=== PATIENT | female | born 1970 | race Hispanic/Latino ===

== ENCOUNTER 2017-07-31 23:31 | Inpatient (IN) | payer MEDICAID ==
[~2017-07-31] VITALS: Ht 167.6 cm; Wt 54.6 kg
[~2017-07-31 23:31] MED LIST: ESOM40CA PO; PREG100C PO
[2017-08-01] MEDS ORDERED: SODIUM CHLORIDE 0.9% 1000ML 1,000 ML IV ONE (00:50)
[2017-08-01 00:53] LABS: BASOPHILS % (AUTO) 1.7 % (0.0-5.0); HEMATOCRIT 34.1 % (36-48); MEAN CORPUSCULAR HEMOGLOBIN 29.3 pg (27.0-33.0); MEAN CORPUSCULAR HGB CONC 33.4 g/dL (32.0-36.0); MEAN CORPUSCULAR VOLUME 87.8 fL (79-99); MONOCYTES % (AUTO) 7.3 % (3.0-13.0); NEUTROPHILS % (AUTO) 22.5 % (40.0-77.0); NUCLEATED RED BLOOD CELLS 0.4 % (0.0-0.19); PLATELET COUNT (AUTO) 170 K/uL (130-400); RED BLOOD CELL COUNT(AUTO) 3.89 MIL/uL (4.00-5.50); RED CELL DISTRIBUTION WIDTH 16.1 % (11.0-15.5); WHITE BLOOD COUNT (AUTO) 1.2 K/uL (4.8-10.8)
[2017-08-01 01:06] LABS: APPEARANCE,URINE Clear (CLEAR); BILIRUBIN,URINE Negative (NEGATIVE); COLOR,URINE Yellow (YELLOW); GLUCOSE, URINE (UA) Negative (NEGATIVE); KETONES,URINE Trace mg/dL (NEGATIVE); LEUKOCYTE ESTERASE ,URINE Negative (NEGATIVE); NITRATE,URINE Negative (NEGATIVE); OCCULT BLOOD,URINE Negative (NEGATIVE); PROTEIN,URINE Negative (NEGATIVE)
[2017-08-01 01:08] LABS: RAPID GROUP A STREP NEGATIVE (NEGATIVE)
[2017-08-01 01:12] LABS: LYMPHOCYTES % (AUTO) 67.5 % (21.0-51.0)
[2017-08-01] MEDS ORDERED: ZOSYN 3.375GM+NS 50ML 50 ML IV ONE ×2 (01:18→07:57)
[2017-08-01 01:20] LABS: CREATININE 0.8 mg/dL (0.5-1.5); POTASSIUM 3.5 mmol/L (3.5-5.1)
[2017-08-01 01:23] LABS: BACTERIA,URINE Rare /HPF (None Seen); RBC,URINE 0-1 /HPF (0-1); SQUAMOUS EPITHELIAL CELL,UR 0-2 /LPF (0-2); WBC,URINE 0-1 /HPF (0-1)
[2017-08-01 01:24] LABS: BILIRUBIN,TOTAL 0.4 mg/dL (0.2-1.0); TOTAL PROTEIN, SERUM 6.8 g/dL (6.0-8.3)
[2017-08-01] MEDS ORDERED: VANCOMYCIN 1GM+NS 250ML 250 ML IV ONE ×2 (01:54→11:44)
[2017-08-01 05:54] LABS: BASOPHILS % (AUTO) 1.2 % (0.0-5.0); EOSINOPHILS % (AUTO) 0.7 % (0.0-8.0); HEMATOCRIT 31.3 % (36-48); LYMPHOCYTES % (AUTO) 75.8 % (21.0-51.0); MEAN CORPUSCULAR HEMOGLOBIN 28.8 pg (27.0-33.0); MEAN CORPUSCULAR VOLUME 87.4 fL (79-99); MONOCYTES % (AUTO) 9.3 % (3.0-13.0); NUCLEATED RED BLOOD CELLS 0.2 % (0.0-0.19); PLATELET COUNT (AUTO) 162 K/uL (130-400); RED BLOOD CELL COUNT(AUTO) 3.59 MIL/uL (4.00-5.50); RED CELL DISTRIBUTION WIDTH 16.1 % (11.0-15.5); WHITE BLOOD COUNT (AUTO) 1.5 K/uL (4.8-10.8)
[2017-08-01 06:07] LABS: CREATININE 0.7 mg/dL (0.5-1.5); POTASSIUM 3.3 mmol/L (3.5-5.1)
[2017-08-01] MEDS ORDERED: VANCOMYCIN PROTOCOL PER PHARMACY IV PRN (11:00)
[2017-08-01] MEDS ORDERED: ACETAMINOPHEN 325 MG TAB PO PRN ×2 (11:00)
[2017-08-01] MEDS ORDERED: ACETAMINOPHEN-CODEINE 300/30MG TAB PO PRN (11:00)
[2017-08-01] MEDS ORDERED: GUAIFENESIN-DM 200/20 MG 10 ML PO PRN (11:00)
[2017-08-01] MEDS ORDERED: LACTULOSE 20 GM/30 ML UDCUP PO PRN (11:00)
[2017-08-01] MEDS ORDERED: MAG HYDROX/AL HYDROX/SIMETH ES 30 ML SUSP UDCUP PO PRN (11:00)
[2017-08-01] MEDS ORDERED: POTASSIUM CHLORIDE 20 MEQ ERTAB PO ONE (11:43)
[2017-08-01] MEDS ORDERED: ACETAMINOPHEN-CODEINE 300/30MG TAB ONE (11:43)
[2017-08-01] MEDS ORDERED: PHARMACY COMMUNICATION MISC SCH (12:45)
[2017-08-01] MEDS ORDERED: POTASSIUM CHLORIDE 10% ELIXIR 20 MEQ/15 ML UDCUP PO PRN (13:00)
[2017-08-01] MEDS ORDERED: LIDOCAINE HCL-MPF 1% 2ML VIAL IJ PRN (13:00)
[2017-08-01] MEDS ORDERED: POTASSIUM CHLORIDE 20MEQ/100ML 100 ML IV PRN (13:00)
[2017-08-01] MEDS ORDERED: CLONIDINE HCL 0.1 MG TABLET PO PRN (13:00)
[2017-08-01] MEDS ORDERED: POTASSIUM CHLORIDE 20 MEQ ERTAB PO PRN (13:00)
[2017-08-01] MEDS ORDERED: ZOLPIDEM TARTRATE 5 MG TAB PO PRN (13:15)
[2017-08-01] MEDS ORDERED: COMPOUND IV REFRIGERATED 1 EACH IVSOLN MISC PRN (13:30)
[2017-08-01] MEDS: TBO-FILGRASTIM 300 MCG/0.5 ML ML SQ SCH (15:01)
[2017-08-01] MEDS: ZOSYN 3.375GM+NS 50ML 50 ML IV SCH ×2 (15:16→21:53)
[2017-08-01] MEDS: MORPHINE SULFATE 2 MG/ML 1ML SYG IV PRN ×2 (17:35→21:53)
[2017-08-01 20:00] VITALS: BP 127/78
[2017-08-01] MEDS: OSELTAMIVIR PHOSPHATE 75 MG CAP PO SCH (21:53)
[2017-08-01] MEDS: FAMOTIDINE/PF 20 MG/2 ML VIAL IV SCH (21:53)
[2017-08-01] MEDS: SODIUM CHLORIDE 0.9% 1000ML 1,000 ML IV SCH (21:54)
[2017-08-01] MEDS: VANCOMYCIN 1.25 GM in N.S. 250 ML IV SCH (21:54)
[2017-08-01] MEDS: ONDANSETRON HCL 4 MG/2 ML VIAL IV PRN (23:21)
[2017-08-01] MEDS ORDERED: TRAZ-144 PO (23:36)
[2017-08-01] MEDS ORDERED: DIPH1TAB24 PO (23:36)
[2017-08-01] MEDS ORDERED: CITA20TA17 PO (23:36)
[2017-08-01] MEDS ORDERED: AMOX1TAB15 PO (23:36)
[2017-08-01] MEDS ORDERED: PROCHLORPER PO (23:36)
[2017-08-01] MEDS ORDERED: HYOS-7 PO (23:36)
[2017-08-02 00:19] VITALS: BP 113/67
[2017-08-02] MEDS: ZOSYN 3.375GM+NS 50ML 50 ML IV SCH ×3 (04:41→22:06)
[2017-08-02] MEDS: MORPHINE SULFATE 2 MG/ML 1ML SYG IV PRN ×4 (04:41→22:00)
[2017-08-02] MEDS ORDERED: LACT1CAP78 PO (04:52)
[2017-08-02 04:54] VITALS: BP 131/73
[2017-08-02] MEDS: SODIUM CHLORIDE 0.9% 1000ML 1,000 ML IV SCH ×2 (06:16→22:05)
[2017-08-02 07:31] LABS: HEMATOCRIT 34.4 % (36-48); MEAN CORPUSCULAR HEMOGLOBIN 29.4 pg (27.0-33.0); MEAN CORPUSCULAR HGB CONC 33.5 g/dL (32.0-36.0); MEAN CORPUSCULAR VOLUME 87.8 fL (79-99); NUCLEATED RED BLOOD CELLS 0.4 % (0.0-0.19); PLATELET COUNT (AUTO) 157 K/uL (130-400); RED BLOOD CELL COUNT(AUTO) 3.92 MIL/uL (4.00-5.50); RED CELL DISTRIBUTION WIDTH 16.4 % (11.0-15.5); WHITE BLOOD COUNT (AUTO) 3.4 K/uL (4.8-10.8)
[2017-08-02 07:33] LABS: CREATININE 0.7 mg/dL (0.5-1.5); POTASSIUM 4.1 mmol/L (3.5-5.1)
[2017-08-02 07:56] LABS: BAND NEUTROPHILS % (MANUAL) 2 % (0-2); BASOPHILS % (MANUAL) 1 % (0-2); EOSINOPHILS % (MANUAL) 1 % (1-6); LYMPHOCYTES % (MANUAL) 47 % (22-44); MONOCYTES % (MANUAL) 17 % (2-9); SEGMENTED NEUTROPHILS % 32 % (40-70)
[2017-08-02 07:57] LABS: MAN.DIFF COMMENT-IMPRESSION MANUAL DIFFERENTIAL; PLATELET MORPHOLOGY COMMENT ADEQUATE
[2017-08-02 08:00] VITALS: BP 102/40
[2017-08-02] MEDS: FAMOTIDINE/PF 20 MG/2 ML VIAL IV SCH ×2 (08:24→22:06)
[2017-08-02] MEDS: OSELTAMIVIR PHOSPHATE 75 MG CAP PO SCH ×2 (08:24→22:06)
[2017-08-02] MEDS: ONDANSETRON HCL 4 MG/2 ML VIAL IV PRN ×2 (08:46→14:37)
[2017-08-02 11:00] VITALS: BP 127/84
[2017-08-02] MEDS: VANCOMYCIN 1.25 GM in N.S. 250 ML IV SCH ×2 (11:39→23:44)
[2017-08-02] MEDS: METRONIDAZOLE 500MG/100ML BAG 100 ML IV SCH ×2 (14:09→22:07)
[2017-08-02] MEDS: TBO-FILGRASTIM 300 MCG/0.5 ML ML SQ SCH (14:09)
[2017-08-02] MEDS: GABAPENTIN 100 MG CAPSULE PO SCH ×2 (14:10→22:06)
[2017-08-02] MEDS: LOPERAMIDE HCL 1 MG/5 ML UNIT DOSE CUP PO PRN (14:19)
[2017-08-02 17:06] VITALS: BP 111/67
[2017-08-02 20:00] VITALS: BP 143/71
[2017-08-02] MEDS: ONDANSETRON HCL 4 MG/2 ML VIAL IVP PRN (22:00)
[2017-08-03] VITALS (8 sets, daily range): BP systolic 115–185; BP diastolic 47–88
[2017-08-03] MEDS: ONDANSETRON HCL 4 MG/2 ML VIAL IVP PRN ×4 (03:51→21:56)
[2017-08-03] MEDS: MORPHINE SULFATE 2 MG/ML 1ML SYG IV PRN ×4 (03:53→21:56)
[2017-08-03] MEDS: ZOSYN 3.375GM+NS 50ML 50 ML IV SCH ×3 (05:04→21:00)
[2017-08-03] MEDS: SODIUM CHLORIDE 0.9% 1000ML 1,000 ML IV SCH (05:05)
[2017-08-03] MEDS: METRONIDAZOLE 500MG/100ML BAG 100 ML IV SCH ×3 (05:32→22:00)
[2017-08-03 06:14] LABS: HEMATOCRIT 32.4 % (36-48); MEAN CORPUSCULAR HEMOGLOBIN 29.1 pg (27.0-33.0); MEAN CORPUSCULAR HGB CONC 33.3 g/dL (32.0-36.0); MEAN CORPUSCULAR VOLUME 87.4 fL (79-99); NUCLEATED RED BLOOD CELLS 0.4 % (0.0-0.19); PLATELET COUNT (AUTO) 135 K/uL (130-400); RED BLOOD CELL COUNT(AUTO) 3.71 MIL/uL (4.00-5.50); RED CELL DISTRIBUTION WIDTH 16.3 % (11.0-15.5); WHITE BLOOD COUNT (AUTO) 4.1 K/uL (4.8-10.8)
[2017-08-03 06:26] LABS: CREATININE 0.9 mg/dL (0.5-1.5); POTASSIUM 3.8 mmol/L (3.5-5.1)
[2017-08-03] MEDS: FAMOTIDINE/PF 20 MG/2 ML VIAL IV SCH ×2 (09:55→22:00)
[2017-08-03] MEDS: OSELTAMIVIR PHOSPHATE 75 MG CAP PO SCH ×2 (09:55→21:27)
[2017-08-03] MEDS: GABAPENTIN 100 MG CAPSULE PO SCH ×3 (09:56→21:26)
[2017-08-03] MEDS: TBO-FILGRASTIM 300 MCG/0.5 ML ML SQ SCH (12:55)
[2017-08-03] MEDS: VANCOMYCIN 1GM+NS 250ML 250 ML IV SCH ×2 (12:55→23:38)
[2017-08-03] MEDS: LOPERAMIDE HCL 1 MG/5 ML UNIT DOSE CUP PO PRN (23:39)
[2017-08-04 03:31] VITALS: BP 119/70
[2017-08-04 03:56] LABS: HEMATOCRIT 33.6 % (36-48); MEAN CORPUSCULAR HEMOGLOBIN 29.4 pg (27.0-33.0); MEAN CORPUSCULAR HGB CONC 33.8 g/dL (32.0-36.0); MEAN CORPUSCULAR VOLUME 87.1 fL (79-99); NUCLEATED RED BLOOD CELLS 0.2 % (0.0-0.19); PLATELET COUNT (AUTO) 142 K/uL (130-400); RED BLOOD CELL COUNT(AUTO) 3.86 MIL/uL (4.00-5.50); RED CELL DISTRIBUTION WIDTH 16.5 % (11.0-15.5)
[2017-08-04] MEDS: ONDANSETRON HCL 4 MG/2 ML VIAL IVP PRN ×2 (03:56→09:09)
[2017-08-04] MEDS: MORPHINE SULFATE 2 MG/ML 1ML SYG IV PRN ×3 (03:56→15:11)
[2017-08-04] MEDS: VANCOMYCIN 1GM+NS 250ML 250 ML IV SCH (05:00)
[2017-08-04] MEDS: ZOSYN 3.375GM+NS 50ML 50 ML IV SCH (06:36)
[2017-08-04] MEDS: METRONIDAZOLE 500MG/100ML BAG 100 ML IV SCH (06:36)
[2017-08-04 08:00] VITALS: BP 111/76
[2017-08-04 08:26] LABS: INR 1.07 (0.85-1.15); PARTIAL THROMBOPLASTIN TIME 26.1 SEC (26.3-35.5); PROTHROMBIN TIME 11.2 SEC (9.6-11.6)
[2017-08-04] MEDS: FAMOTIDINE/PF 20 MG/2 ML VIAL IV SCH (09:09)
[2017-08-04] MEDS ORDERED: LIDOCAINE HCL 2% 20ML ONE (09:46)
[2017-08-04] MEDS ORDERED: DOXY100T2 PO (10:22)
[2017-08-04 11:00] VITALS: BP 125/79
[2017-08-04] MEDS: GABAPENTIN 100 MG CAPSULE PO SCH (13:42)
[2017-08-04] MEDS: OSELTAMIVIR PHOSPHATE 75 MG CAP PO SCH (13:42)
[2017-08-04 16:00] VITALS: BP 141/78
== END 2017-08-04 19:05 | disposition home or self-care (01) | DRG 720 ==
LOC: EDH 23:31 → EDHIP 23:32 → 3BH 08-01 11:35
PROVIDERS: ADMIT Internal Medicine; ATTEND Internal Medicine
DX: A41.9 Sepsis, unspecified organism (principal); D70.9 Neutropenia, unspecified; D70.1 Agranulocytosis secondary to cancer chemotherapy; D69.59 Other secondary thrombocytopenia; C50.919 Malignant neoplasm of unspecified site of unspecified female breast; M79.7 Fibromyalgia; G89.4 Chronic pain syndrome; D64.81 Anemia due to antineoplastic chemotherapy; R50.81 Fever presenting with conditions classified elsewhere; T45.1X5A Adverse effect of antineoplastic and immunosuppressive drugs, initial encounter; M19.90 Unspecified osteoarthritis, unspecified site; Z51.11 Encounter for antineoplastic chemotherapy; Z90.11 Acquired absence of right breast and nipple; Z90.710 Acquired absence of both cervix and uterus; Z79.2 Long term (current) use of antibiotics
CPT/HCPCS: 36415; 71046; 76000; 80048; 80053; 80202; 81001; 83605; 85025; 85027; 85610; 85730; 87040; 87088; 87186; 87205; 87324; 87804; 87880; J2405; J2543; J3370; J3490; J7030

== ENCOUNTER 2017-08-08 19:43 | Observation (INO) | payer MEDICAID ==
[~2017-08-08] VITALS: Ht 154.9 cm; Wt 94.2 kg
[~2017-08-08 19:43] MED LIST changes: +CITA20TA17 PO; +DIPH1TAB24 PO; +DOXY100T2 PO; +HYOS-7 PO; +LACT1CAP78 PO; +PROCHLORPER PO; +TRAZ-144 PO
[2017-08-08] MEDS ORDERED: ACETAMINOPHEN 325 MG TAB ONE (20:04)
[2017-08-08 20:05] LABS: APPEARANCE,URINE Clear (CLEAR); BILIRUBIN,URINE Negative (NEGATIVE); COLOR,URINE Yellow (YELLOW); GLUCOSE, URINE (UA) Negative (NEGATIVE); KETONES,URINE Negative (NEGATIVE); LEUKOCYTE ESTERASE ,URINE Moderate (NEGATIVE); NITRATE,URINE Negative (NEGATIVE); OCCULT BLOOD,URINE Negative (NEGATIVE); PROTEIN,URINE Negative (NEGATIVE); UROBILINOGEN,URINE 0.2 mg/dL (0.2-1.0)
[2017-08-08 20:19] LABS: BACTERIA,URINE None Seen /HPF (None Seen); RBC,URINE None Seen /HPF (0-1); RENAL EPITHELIAL CELLS,URINE Few /LPF (None Seen); TRANSITIONAL EPI CELLS,URINE Few /LPF (None Seen)
[2017-08-08 21:14] LABS: BASOPHILS % (AUTO) 0.4 % (0.0-5.0); EOSINOPHILS % (AUTO) 0.1 % (0.0-8.0); HEMATOCRIT 29.6 % (36-48); LYMPHOCYTES % (AUTO) 19.9 % (21.0-51.0); MEAN CORPUSCULAR HEMOGLOBIN 29.7 pg (27.0-33.0); MEAN CORPUSCULAR HGB CONC 34.5 g/dL (32.0-36.0); MONOCYTES % (AUTO) 12.1 % (3.0-13.0); NEUTROPHILS % (AUTO) 67.5 % (40.0-77.0); PLATELET COUNT (AUTO) 138 K/uL (130-400); RED BLOOD CELL COUNT(AUTO) 3.44 MIL/uL (4.00-5.50); RED CELL DISTRIBUTION WIDTH 16.2 % (11.0-15.5); WHITE BLOOD COUNT (AUTO) 10.3 K/uL (4.8-10.8)
[2017-08-08 21:29] LABS: CREATININE 2.2 mg/dL (0.5-1.5); POTASSIUM 3.3 mmol/L (3.5-5.1)
[2017-08-08] MEDS ORDERED: CEFEPIME 2GM+NS 100ML 100 ML IV SCH (23:15)
[2017-08-09] VITALS (7 sets, daily range): BP systolic 129–141; BP diastolic 61–85
[2017-08-09] MEDS ORDERED: HYDRALAZINE HCL 20 MG/ML VIAL IV PRN (05:00)
[2017-08-09] MEDS ORDERED: MORPHINE SULFATE 2 MG/ML 1ML SYG IV PRN (05:00)
[2017-08-09] MEDS ORDERED: ACETAMINOPHEN 325 MG TAB PO PRN (05:00)
[2017-08-09] MEDS ORDERED: MORPHINE SULFATE 5 MG/ML VIAL ONE (06:19)
[2017-08-09] MEDS: ONDANSETRON HCL 4 MG/2 ML VIAL IV PRN ×2 (07:59→22:10)
[2017-08-09] MEDS ORDERED: CEFEPIME 2GM+NS 100ML 100 ML IV SCH (08:00)
[2017-08-09] MEDS: SODIUM CHLORIDE 0.9% 1000ML 1,000 ML IV SCH ×2 (08:08→21:04)
[2017-08-09] MEDS: PANTOPRAZOLE SODIUM 40 MG TABLET.DR PO SCH (09:59)
[2017-08-09] MEDS ORDERED: MORPHINE SULFATE 4 MG/1ML SYG ONE ×2 (11:24→21:50)
[2017-08-09] MEDS: CEFEPIME HCL 2 GM VIAL IVP SCH ×2 (11:36→20:48)
[2017-08-09] MEDS: WATER FOR INJECTION,STERILE 20 ML VIAL IJ SCH ×2 (11:36→20:48)
[2017-08-10] MEDS ORDERED: MORPHINE SULFATE 4 MG/1ML SYG ONE ×2 (02:45→10:08)
[2017-08-10] MEDS: CEFEPIME HCL 2 GM VIAL IVP SCH ×3 (02:49→19:19)
[2017-08-10] MEDS: WATER FOR INJECTION,STERILE 20 ML VIAL IJ SCH ×3 (02:49→19:19)
[2017-08-10 04:00] VITALS: BP 136/83
[2017-08-10 06:52] LABS: BASOPHILS % (AUTO) 0.8 % (0.0-5.0); EOSINOPHILS % (AUTO) 0.2 % (0.0-8.0); HEMATOCRIT 29.5 % (36-48); MEAN CORPUSCULAR HEMOGLOBIN 29.4 pg (27.0-33.0); MEAN CORPUSCULAR HGB CONC 33.9 g/dL (32.0-36.0); MEAN CORPUSCULAR VOLUME 86.7 fL (79-99); MONOCYTES % (AUTO) 6.5 % (3.0-13.0); NEUTROPHILS % (AUTO) 70.5 % (40.0-77.0); PLATELET COUNT (AUTO) 142 K/uL (130-400); RED CELL DISTRIBUTION WIDTH 16.2 % (11.0-15.5); WHITE BLOOD COUNT (AUTO) 7.3 K/uL (4.8-10.8)
[2017-08-10 07:05] LABS: CREATININE 1.8 mg/dL (0.5-1.5); POTASSIUM 3.3 mmol/L (3.5-5.1)
[2017-08-10 07:30] VITALS: BP 123/82
[2017-08-10] MEDS: PANTOPRAZOLE SODIUM 40 MG TABLET.DR PO SCH (10:15)
[2017-08-10] MEDS: ONDANSETRON HCL 4 MG/2 ML VIAL IV PRN ×2 (10:19→20:59)
[2017-08-10 11:00] VITALS: BP 157/100
[2017-08-10] MEDS: SODIUM CHLORIDE 0.9% 1000ML 1,000 ML IV SCH (11:37)
[2017-08-10 16:00] VITALS: BP 138/82
[2017-08-10] MEDS: METOCLOPRAMIDE 10 MG/2 ML VIAL IVP PRN (16:27)
[2017-08-10] MEDS: MORPHINE SULFATE 2 MG/ML 1ML SYG IV PRN ×2 (16:28→21:00)
[2017-08-10] MEDS ORDERED: POTASSIUM CHLORIDE 10% ELIXIR 20 MEQ/15 ML UDCUP PO PRN (19:15)
[2017-08-10] MEDS ORDERED: LIDOCAINE HCL-MPF 1% 2ML VIAL IVP PRN (19:15)
[2017-08-10] MEDS ORDERED: POTASSIUM CHLORIDE 20MEQ/100ML 100 ML IV PRN (19:15)
[2017-08-10 20:14] VITALS: BP 124/77
[2017-08-10] MEDS: POTASSIUM CHLORIDE 20 MEQ ERTAB PO PRN (21:50)
[2017-08-10] MEDS: SUMATRIPTAN SUCCINATE 25 MG TABLET PO PRN (21:50)
[2017-08-11 00:37] VITALS: BP 141/76
[2017-08-11] MEDS: METOCLOPRAMIDE 10 MG/2 ML VIAL IVP PRN ×2 (01:09→15:20)
[2017-08-11] MEDS: SODIUM CHLORIDE 0.9% 1000ML 1,000 ML IV SCH (01:10)
[2017-08-11] MEDS: MORPHINE SULFATE 2 MG/ML 1ML SYG IV PRN ×4 (01:10→15:19)
[2017-08-11] MEDS: POTASSIUM CHLORIDE 20 MEQ ERTAB PO PRN ×3 (01:17→10:07)
[2017-08-11] MEDS: CEFEPIME HCL 2 GM VIAL IVP SCH ×2 (02:30→10:06)
[2017-08-11] MEDS ORDERED: CEFEPIME HCL 1 GM VIAL ONE (03:19)
[2017-08-11] MEDS: WATER FOR INJECTION,STERILE 20 ML VIAL IJ SCH ×2 (03:24→10:06)
[2017-08-11 04:15] VITALS: BP 136/82
[2017-08-11 05:12] LABS: HEMATOCRIT 30.8 % (36-48); MEAN CORPUSCULAR HEMOGLOBIN 28.7 pg (27.0-33.0); MEAN CORPUSCULAR HGB CONC 33.4 g/dL (32.0-36.0); PLATELET COUNT (AUTO) 161 K/uL (130-400); RED BLOOD CELL COUNT(AUTO) 3.58 MIL/uL (4.00-5.50); RED CELL DISTRIBUTION WIDTH 16.2 % (11.0-15.5); WHITE BLOOD COUNT (AUTO) 7.2 K/uL (4.8-10.8)
[2017-08-11 05:17] LABS: CREATININE 1.6 mg/dL (0.5-1.5); POTASSIUM 3.3 mmol/L (3.5-5.1)
[2017-08-11] MEDS: ONDANSETRON HCL 4 MG/2 ML VIAL IV PRN ×2 (05:25→10:06)
[2017-08-11] MEDS: METRONIDAZOLE 500MG/100ML BAG 100 ML IV SCH ×2 (05:25→15:19)
[2017-08-11 05:54] LABS: BAND NEUTROPHILS % (MANUAL) 3 % (0-2); BASOPHILS % (MANUAL) 3 % (0-2); LYMPHOCYTES % (MANUAL) 26 % (22-44); MONOCYTES % (MANUAL) 3 % (2-9); REACTIVE LYMPHOCYTES 2 % (0-0); SEGMENTED NEUTROPHILS % 63 % (40-70)
[2017-08-11 05:55] LABS: MAN.DIFF COMMENT-IMPRESSION MANUAL DIFFERENTIAL; PLATELET MORPHOLOGY COMMENT ADEQUATE
[2017-08-11] MEDS: PANTOPRAZOLE SODIUM 40 MG TABLET.DR PO SCH (08:06)
[2017-08-11 08:10] VITALS: BP 122/67
[2017-08-11] MEDS: SUMATRIPTAN SUCCINATE 25 MG TABLET PO PRN (10:26)
[2017-08-11 12:00] VITALS: BP 146/88
[2017-08-11] MEDS ORDERED: CEFD300C3 PO (13:07)
[2017-08-11] MEDS ORDERED: METR500T PO (13:07)
[2017-08-11] MEDS ORDERED: SUMA25TA25 PO (13:07)
[2017-08-11] MEDS ORDERED: HEPARIN SODIUM/PF 100UNIT/ML 5ML SYRINGE IV SCH (14:00)
[2017-08-11 16:00] VITALS: BP 159/98
== END 2017-08-11 17:50 | disposition home or self-care (01) ==
LOC: EDH 19:43 → EDHIP 19:44 → 3DH 08-09 02:04
PROVIDERS: ADMIT Family Medicine; ATTEND Family Medicine
DX: N39.0 Urinary tract infection, site not specified (principal); J40 Bronchitis, not specified as acute or chronic; C50.911 Malignant neoplasm of unspecified site of right female breast; M19.90 Unspecified osteoarthritis, unspecified site; D64.9 Anemia, unspecified; N17.9 Acute kidney failure, unspecified; M79.7 Fibromyalgia; K52.9 Noninfective gastroenteritis and colitis, unspecified; Z85.3 Personal history of malignant neoplasm of breast
CPT/HCPCS: 36415 ×4; 71045; 80048 ×3; 81001; 83605; 85025 ×3; 87040 ×4; 87088; 87507; 87804 ×2; 96361 ×3; 96365; 96366; 96375 ×4; 96376 ×3; 99285; A4510; G0378 ×70; J0360; J0692 ×7; J1642; J2270 ×5; J2405 ×6; J2765 ×3; J3490 ×2; J7030 ×2; 96374

== ENCOUNTER 2017-09-07 20:32 | Inpatient (IN) | payer MEDICAID ==
[~2017-09-07] VITALS: Ht 154.9 cm; Wt 94.2 kg
[~2017-09-07 20:32] MED LIST changes: +CEFD300C3 PO; -DOXY100T2 PO; +METR500T PO; +SUMA25TA25 PO
[2017-09-07 21:22] LABS: BASOPHILS % (AUTO) 0.8 % (0.0-5.0); EOSINOPHILS % (AUTO) 0.2 % (0.0-8.0); HEMATOCRIT 30.6 % (36-48); LYMPHOCYTES % (AUTO) 20.3 % (21.0-51.0); MEAN CORPUSCULAR HEMOGLOBIN 30.8 pg (27.0-33.0); MEAN CORPUSCULAR HGB CONC 35.9 g/dL (32.0-36.0); MEAN CORPUSCULAR VOLUME 85.8 fL (79-99); MONOCYTES % (AUTO) 0.7 % (3.0-13.0); PLATELET COUNT (AUTO) 137 K/uL (130-400); RED BLOOD CELL COUNT(AUTO) 3.57 MIL/uL (4.00-5.50); RED CELL DISTRIBUTION WIDTH 18.3 % (11.0-15.5); WHITE BLOOD COUNT (AUTO) 7.9 K/uL (4.8-10.8)
[2017-09-07 21:37] LABS: CARBON DIOXIDE 27 mmol/L (21-32); CHLORIDE 102 mmol/L (101-111); CREATININE 0.9 mg/dL (0.5-1.5); GLOMERULAR FILTR. RATE CALC 71 mL/min (>60); GLUCOSE,RANDOM 100 mg/dL (70-105); POTASSIUM 3.1 mmol/L (3.5-5.1); SODIUM SERUM 139 mmol/L (136-145); UREA NITROGEN, BLOOD 9 mg/dL (7-18)
[2017-09-07 21:38] LABS: INR 0.99 (0.85-1.15); PARTIAL THROMBOPLASTIN TIME 25.1 SEC (26.3-35.5); PROTHROMBIN TIME 10.4 SEC (9.6-11.6)
[2017-09-07] MEDS ORDERED: CEFTRIAXONE SODIUM 1 GM ONE (21:40)
[2017-09-07 21:50] LABS: ALANINE AMINOTRANSFERASE 37 U/L (12-78); ALBUMIN 2.9 g/dL (3.5-5.0); ASPARTATE AMINOTRANSFERASE 35 U/L (10-37); BILIRUBIN,TOTAL 0.5 mg/dL (0.2-1.0); CREATINE KINASE MB < 0.5 ng/mL (0.5-3.6); CREATINE KINASE, TOTAL 66 U/L (21-232); MYOGLOBIN 29 ng/mL (10-92); TOTAL PROTEIN, SERUM 6.8 g/dL (6.0-8.3); TROPONIN I < 0.04 ng/mL (0.00-0.06)
[2017-09-07] MEDS ORDERED: ONDANSETRON HCL 4 MG/2 ML VIAL ONE ×2 (21:55→23:47)
[2017-09-07] MEDS ORDERED: HYDROMORPHONE HCL 2 MG/ML VIAL ONE ×2 (21:56→23:47)
[2017-09-07] MEDS ORDERED: POTASSIUM BICARB/CIT AC 25 MEQ TABLET.EFF ONE (22:39)
[2017-09-07] MEDS ORDERED: SODIUM CHLORIDE 0.9% 1000ML 1,000 ML IV ONE (23:39)
[2017-09-07] MEDS ORDERED: POTASSIUM CHLORIDE 20MEQ/100ML 100 ML IV PRN (23:45)
[2017-09-07] MEDS ORDERED: ONDANSETRON HCL 4 MG/2 ML VIAL IVP PRN (23:45)
[2017-09-07] MEDS ORDERED: HYDROMORPHONE HCL 0.5 MG/0.5 ML ML IVP PRN (23:45)
[2017-09-07] MEDS ORDERED: LIDOCAINE HCL-MPF 1% 2ML VIAL IJ PRN (23:45)
[2017-09-07] MEDS ORDERED: HYDROCODONE/ACETAMINOPHEN 5/325 MG TAB PO PRN (23:45)
[2017-09-07] MEDS ORDERED: POTASSIUM CHLORIDE 10% ELIXIR 20 MEQ/15 ML UDCUP PO PRN (23:45)
[2017-09-08] MEDS ORDERED: CEFTRIAXONE SODIUM 1 GM IVP SCH
[2017-09-08 00:25] VITALS: BP 125/53
[2017-09-08] MEDS ORDERED: SUMATRIPTAN SUCCINATE 25 MG TABLET PO PRN (00:30)
[2017-09-08] MEDS ORDERED: DIPHENOXYLATE HCL/ATROPINE 2.5/0.025 MG TAB PO PRN (00:30)
[2017-09-08] MEDS ORDERED: ONDA4TAB4 PO (00:45)
[2017-09-08] MEDS ORDERED: PREG200C PO (00:45)
[2017-09-08] MEDS ORDERED: PREGABALIN 100 MG CAPSULE ONE (00:54)
[2017-09-08] MEDS: POTASSIUM CHLORIDE 20 MEQ ERTAB PO PRN ×5 (01:46→18:49)
[2017-09-08 03:55] VITALS: BP 118/60
[2017-09-08] MEDS ORDERED: HYDROMORPHONE HCL 2 MG/ML VIAL ONE ×3 (03:57→12:23)
[2017-09-08 04:26] LABS: APPEARANCE,URINE Clear (CLEAR); BILIRUBIN,URINE Negative (NEGATIVE); COLOR,URINE Yellow (YELLOW); GLUCOSE, URINE (UA) Negative (NEGATIVE); KETONES,URINE Negative (NEGATIVE); LEUKOCYTE ESTERASE ,URINE Small (NEGATIVE); NITRATE,URINE Negative (NEGATIVE); OCCULT BLOOD,URINE Negative (NEGATIVE); PROTEIN,URINE Negative (NEGATIVE); UROBILINOGEN,URINE 0.2 mg/dL (0.2-1.0)
[2017-09-08 04:50] LABS: BACTERIA,URINE Rare /HPF (None Seen); RBC,URINE 0-1 /HPF (0-1); SQUAMOUS EPITHELIAL CELL,UR Moderate /LPF (0-2)
[2017-09-08 05:21] LABS: HEMATOCRIT 28.6 % (36-48); MEAN CORPUSCULAR HEMOGLOBIN 30.9 pg (27.0-33.0); MEAN CORPUSCULAR VOLUME 85.8 fL (79-99); PLATELET COUNT (AUTO) 142 K/uL (130-400); RED BLOOD CELL COUNT(AUTO) 3.33 MIL/uL (4.00-5.50); RED CELL DISTRIBUTION WIDTH 17.7 % (11.0-15.5); WHITE BLOOD COUNT (AUTO) 7.3 K/uL (4.8-10.8)
[2017-09-08 05:29] LABS: CREATININE 0.8 mg/dL (0.5-1.5); POTASSIUM 3.1 mmol/L (3.5-5.1)
[2017-09-08] MEDS: ONDANSETRON 4 MG TABLET PO SCH ×2 (06:34→15:14)
[2017-09-08] MEDS: HYOSCYAMINE SULFATE 0.125 MG TAB.SUBL SL SCH ×4 (06:34→23:36)
[2017-09-08] MEDS: KETOROLAC TROMETHAMINE 15MG/ML IV PRN ×2 (06:38→15:13)
[2017-09-08] MEDS: LACTOBACILLUS RHAMNOSUS GG 1 EACH CAP.SPRINK PO SCH (07:58)
[2017-09-08] MEDS: PREGABALIN 100 MG CAPSULE PO SCH ×2 (07:59→20:39)
[2017-09-08] MEDS: PANTOPRAZOLE SODIUM 40 MG TABLET.DR PO SCH (07:59)
[2017-09-08 08:00] VITALS: BP 124/63
[2017-09-08] MEDS ORDERED: HYDROMORPHONE 1 MG/1 ML AMP IVP PRN (08:00)
[2017-09-08] MEDS ORDERED: PROCHLORPERAZINE 10 MG PO PRN (09:00)
[2017-09-08 11:00] VITALS: BP 114/70
[2017-09-08] MEDS: LEVOFLOXACIN 500 MG/D5W 100 ML 100 ML IV SCH (12:26)
[2017-09-08] MEDS ORDERED: CEFTAZIDIME 1GM+NS 50ML 50 ML IV SCH (14:00)
[2017-09-08] MEDS: CEFTAZIDIME PENTAHYDRATE 1 GM/VIAL IVP SCH ×2 (14:53→21:13)
[2017-09-08 16:00] VITALS: BP 101/55
[2017-09-08 20:24] VITALS: BP 101/64
[2017-09-08] MEDS: CITALOPRAM 20 MG TABLET PO SCH (20:38)
[2017-09-08] MEDS: TRAMADOL HCL 50 MG TABLET PO SCH ×2 (20:38→21:39)
[2017-09-08] MEDS: TRAZODONE HCL 50 MG TAB PO SCH (20:38)
[2017-09-09] VITALS (7 sets, daily range): BP systolic 99–121; BP diastolic 54–84
[2017-09-09] MEDS: KETOROLAC TROMETHAMINE 15MG/ML IV PRN (00:48)
[2017-09-09] MEDS ORDERED: HYDROMORPHONE HCL 2 MG/ML VIAL ONE ×4 (04:27→22:31)
[2017-09-09 05:02] LABS: HEMATOCRIT 29.1 % (36-48); MEAN CORPUSCULAR HEMOGLOBIN 29.5 pg (27.0-33.0); MEAN CORPUSCULAR VOLUME 86.7 fL (79-99); PLATELET COUNT (AUTO) 182 K/uL (130-400); RED BLOOD CELL COUNT(AUTO) 3.35 MIL/uL (4.00-5.50); RED CELL DISTRIBUTION WIDTH 17.8 % (11.0-15.5); WHITE BLOOD COUNT (AUTO) 5.3 K/uL (4.8-10.8)
[2017-09-09 05:15] LABS: CREATININE 0.9 mg/dL (0.5-1.5)
[2017-09-09] MEDS: CEFTAZIDIME PENTAHYDRATE 1 GM/VIAL IVP SCH ×3 (05:47→21:24)
[2017-09-09] MEDS: HYOSCYAMINE SULFATE 0.125 MG TAB.SUBL SL SCH ×3 (05:47→16:00)
[2017-09-09] MEDS: SODIUM CHLORIDE 0.9% 1000ML 1,000 ML IV SCH ×3 (05:47→21:28)
[2017-09-09] MEDS: ONDANSETRON 4 MG TABLET PO SCH ×2 (05:48→16:00)
[2017-09-09] MEDS: TRAMADOL HCL 50 MG TABLET PO SCH ×3 (05:51→21:27)
[2017-09-09] MEDS: LEVOFLOXACIN 500 MG/D5W 100 ML 100 ML IV SCH (09:55)
[2017-09-09] MEDS: PANTOPRAZOLE SODIUM 40 MG TABLET.DR PO SCH (09:55)
[2017-09-09] MEDS: LACTOBACILLUS RHAMNOSUS GG 1 EACH CAP.SPRINK PO SCH (09:56)
[2017-09-09] MEDS: PREGABALIN 100 MG CAPSULE PO SCH ×2 (09:56→21:27)
[2017-09-09] MEDS: HYDROMORPHONE 4MG/ML 1ML VIAL IVP PRN ×2 (09:58→16:56)
[2017-09-09] MEDS: OSELTAMIVIR PHOSPHATE 75 MG CAP PO SCH (21:27)
[2017-09-09] MEDS: TRAZODONE HCL 50 MG TAB PO SCH (21:27)
[2017-09-09] MEDS: CITALOPRAM 20 MG TABLET PO SCH (21:27)
[2017-09-10] MEDS: HYOSCYAMINE SULFATE 0.125 MG TAB.SUBL SL SCH ×3 (00:27→10:57)
[2017-09-10 04:00] VITALS: BP 109/64
[2017-09-10] MEDS ORDERED: HYDROMORPHONE HCL 2 MG/ML VIAL ONE (04:33)
[2017-09-10 05:10] LABS: MEAN CORPUSCULAR HEMOGLOBIN 29.5 pg (27.0-33.0); MEAN CORPUSCULAR HGB CONC 33.9 g/dL (32.0-36.0); MEAN CORPUSCULAR VOLUME 87.1 fL (79-99); NUCLEATED RED BLOOD CELLS 0.1 % (0.0-0.19); PLATELET COUNT (AUTO) 196 K/uL (130-400); RED CELL DISTRIBUTION WIDTH 18.1 % (11.0-15.5); WHITE BLOOD COUNT (AUTO) 3.7 K/uL (4.8-10.8)
[2017-09-10 05:23] LABS: CREATININE 0.7 mg/dL (0.5-1.5); POTASSIUM 3.4 mmol/L (3.5-5.1)
[2017-09-10] MEDS: CEFTAZIDIME PENTAHYDRATE 1 GM/VIAL IVP SCH ×2 (05:46→14:07)
[2017-09-10] MEDS: TRAMADOL HCL 50 MG TABLET PO SCH ×2 (05:48→14:08)
[2017-09-10] MEDS: POTASSIUM CHLORIDE 20 MEQ ERTAB PO PRN ×2 (06:44→09:57)
[2017-09-10 08:00] VITALS: BP 108/72
[2017-09-10] MEDS: LEVOFLOXACIN 500 MG/D5W 100 ML 100 ML IV SCH (09:55)
[2017-09-10] MEDS: SODIUM CHLORIDE 0.9% 1000ML 1,000 ML IV SCH (09:55)
[2017-09-10] MEDS: OSELTAMIVIR PHOSPHATE 75 MG CAP PO SCH (09:56)
[2017-09-10] MEDS: PREGABALIN 100 MG CAPSULE PO SCH (09:56)
[2017-09-10] MEDS: PANTOPRAZOLE SODIUM 40 MG TABLET.DR PO SCH (09:56)
[2017-09-10] MEDS: ONDANSETRON 4 MG TABLET PO SCH ×2 (09:56→14:07)
[2017-09-10] MEDS: LACTOBACILLUS RHAMNOSUS GG 1 EACH CAP.SPRINK PO SCH (10:03)
[2017-09-10 11:00] VITALS: BP_SYST 112; BP_SYST 129; BP_DIAS 62; BP_DIAS 80
[2017-09-10] MEDS ORDERED: CEFU500T67 PO (14:08)
[2017-09-10] MEDS ORDERED: OSEL75 PO (14:08)
[2017-09-10 16:00] VITALS: BP 114/60
== END 2017-09-10 17:37 | disposition home or self-care (01) | DRG 720 ==
LOC: EDH 20:32 → EDHIP 20:33 → 4CH 09-08 00:20
PROVIDERS: ADMIT Internal Medicine; ATTEND Internal Medicine
DX: A41.9 Sepsis, unspecified organism (principal); C50.919 Malignant neoplasm of unspecified site of unspecified female breast; E66.01 Morbid (severe) obesity due to excess calories; E11.9 Type 2 diabetes mellitus without complications; D64.9 Anemia, unspecified; E87.6 Hypokalemia; E66.9 Obesity, unspecified; M06.9 Rheumatoid arthritis, unspecified; R62.7 Adult failure to thrive; Z80.0 Family history of malignant neoplasm of digestive organs; Z85.3 Personal history of malignant neoplasm of breast; Z92.21 Personal history of antineoplastic chemotherapy; F32.9 Major depressive disorder, single episode, unspecified; Z90.710 Acquired absence of both cervix and uterus; N39.0 Urinary tract infection, site not specified; Z68.39 Body mass index [BMI] 39.0-39.9, adult; Z90.11 Acquired absence of right breast and nipple; Z28.21 Immunization not carried out because of patient refusal
CPT/HCPCS: 36415; 71045; 80048; 80053; 81001; 82550; 82553; 83605; 83874; 84484; 85025; 85027; 85610; 85730; 87040; 87088; 87804; 93005; A4218; J0696; J0713; J1170; J1885; J1956; J2405; J7030; Q0162

== ENCOUNTER 2017-10-21 22:21 | Emergency (ER) | payer MEDICAID ==
[~2017-10-21 22:21] MED LIST changes: -CEFD300C3 PO; +CEFU500T67 PO; -METR500T PO; +ONDA4TAB4 PO; +OSEL75 PO; +PREG200C PO
[2017-10-21] MEDS ORDERED: SODIUM CHLORIDE 0.9% 1000ML 1,000 ML IV ONE (23:03)
[2017-10-21] MEDS ORDERED: ONDANSETRON ODT 4 MG TAB ONE (23:03)
[2017-10-21 23:08] LABS: BASOPHILS % (AUTO) 1.1 % (0.0-5.0); EOSINOPHILS % (AUTO) 0.8 % (0.0-8.0); HEMATOCRIT 33.9 % (36-48); LYMPHOCYTES % (AUTO) 29.6 % (21.0-51.0); MEAN CORPUSCULAR HGB CONC 34.7 g/dL (32.0-36.0); MEAN CORPUSCULAR VOLUME 86.3 fL (79-99); MONOCYTES % (AUTO) 3.5 % (3.0-13.0); NUCLEATED RED BLOOD CELLS 0.1 % (0.0-0.19); PLATELET COUNT (AUTO) 208 K/uL (130-400); RED BLOOD CELL COUNT(AUTO) 3.93 MIL/uL (4.00-5.50); RED CELL DISTRIBUTION WIDTH 17.8 % (11.0-15.5); WHITE BLOOD COUNT (AUTO) 5.6 K/uL (4.8-10.8)
[2017-10-21 23:14] LABS: CREATININE 0.7 mg/dL (0.5-1.5)
[2017-10-21 23:19] LABS: ALBUMIN 3.2 g/dL (3.5-5.0); BILIRUBIN,TOTAL 0.4 mg/dL (0.2-1.0); TOTAL PROTEIN, SERUM 7.3 g/dL (6.0-8.3)
[2017-10-22 00:41] LABS: APPEARANCE,URINE Clear (CLEAR); BILIRUBIN,URINE Negative (NEGATIVE); COLOR,URINE Yellow (YELLOW); GLUCOSE, URINE (UA) Negative (NEGATIVE); KETONES,URINE Negative (NEGATIVE); LEUKOCYTE ESTERASE ,URINE Negative (NEGATIVE); NITRATE,URINE Negative (NEGATIVE); OCCULT BLOOD,URINE Negative (NEGATIVE); PROTEIN,URINE Negative (NEGATIVE); UROBILINOGEN,URINE 0.2 mg/dL (0.2-1.0)
[2017-10-22 00:47] LABS: HCG,QUAL RESULT NEGATIVE (NEGATIVE)
[2017-10-22] MEDS ORDERED: HYDROCODONE/ACETAMINOPHEN 7.5/325 MG 15 ML UDCUP ONE (00:51)
== END 2017-10-22 01:32 | disposition home or self-care (01) ==
LOC: EDH 22:21
DX: Z51.11 Encounter for antineoplastic chemotherapy (principal); C50.919 Malignant neoplasm of unspecified site of unspecified female breast; R19.7 Diarrhea, unspecified; M19.90 Unspecified osteoarthritis, unspecified site
CPT/HCPCS: 36415; 80053; 80339; 81003; 81025; 83605; 85025; 96360; 99284; J7030

== ENCOUNTER 2017-11-09 18:22 | Emergency (ER) | payer MEDICAID ==
[~2017-11-09 18:22] MED LIST changes: -TRAZ-144 PO; +TRAZ-185 PO
[2017-11-09 18:56] LABS: BASOPHILS % (AUTO) 0.7 % (0.0-5.0); EOSINOPHILS % (AUTO) 0.7 % (0.0-8.0); HEMATOCRIT 30.6 % (36-48); LYMPHOCYTES % (AUTO) 22.1 % (21.0-51.0); MEAN CORPUSCULAR HEMOGLOBIN 30.1 pg (27.0-33.0); MEAN CORPUSCULAR HGB CONC 34.4 g/dL (32.0-36.0); MEAN CORPUSCULAR VOLUME 87.4 fL (79-99); MONOCYTES % (AUTO) 7.3 % (3.0-13.0); NEUTROPHILS % (AUTO) 69.2 % (40.0-77.0); NUCLEATED RED BLOOD CELLS 0.1 % (0.0-0.19); PLATELET COUNT (AUTO) 197 K/uL (130-400); WHITE BLOOD COUNT (AUTO) 11.3 K/uL (4.8-10.8)
[2017-11-09 19:07] LABS: CREATININE 0.8 mg/dL (0.5-1.5); POTASSIUM 3.9 mmol/L (3.5-5.1)
[2017-11-09 19:12] LABS: ALBUMIN 3.3 g/dL (3.5-5.0); BILIRUBIN,TOTAL 0.1 mg/dL (0.2-1.0); TOTAL PROTEIN, SERUM 6.7 g/dL (6.0-8.3)
[2017-11-09] MEDS ORDERED: MORPHINE SULFATE 2 MG/ML 1ML SYG ONE (19:28)
[2017-11-09 20:02] LABS: RAPID GROUP A STREP NEGATIVE (NEGATIVE)
[2017-11-09] MEDS ORDERED: FENTANYL CITRATE PF 50 MCG/1 ML 2ML VIAL ONE (22:35)
[2017-11-10] MEDS ORDERED: ORPHENADRINE CITRATE 30 MG/ML ML ONE (00:24)
[2017-11-10] MEDS ORDERED: KETOROLAC TROMETHAMINE 30MG/ML ONE (01:34)
== END 2017-11-10 02:24 | disposition home or self-care (01) ==
LOC: EDH 18:22
DX: J06.9 Acute upper respiratory infection, unspecified (principal); C50.911 Malignant neoplasm of unspecified site of right female breast; M79.7 Fibromyalgia; M19.90 Unspecified osteoarthritis, unspecified site; G62.9 Polyneuropathy, unspecified; Z90.11 Acquired absence of right breast and nipple; Z90.710 Acquired absence of both cervix and uterus
CPT/HCPCS: 36415; 71046; 80053; 82550; 83880; 84484; 85025; 87804 ×2; 87880; 93005; 96374; 96375; 99285; J1885; J2360; J3010

== ENCOUNTER 2017-12-20 00:47 | Emergency (ER) | payer MEDICAID ==
[2017-12-20 01:18] LABS: EOSINOPHILS % (AUTO) 1.8 % (0.0-8.0); HEMATOCRIT 31.6 % (36-48); LYMPHOCYTES % (AUTO) 34.1 % (21.0-51.0); MEAN CORPUSCULAR HEMOGLOBIN 29.1 pg (27.0-33.0); MEAN CORPUSCULAR HGB CONC 33.8 g/dL (32.0-36.0); MEAN CORPUSCULAR VOLUME 86.2 fL (79-99); MONOCYTES % (AUTO) 9.9 % (3.0-13.0); NEUTROPHILS % (AUTO) 53.2 % (40.0-77.0); PLATELET COUNT (AUTO) 127 K/uL (130-400); RED BLOOD CELL COUNT(AUTO) 3.67 MIL/uL (4.00-5.50); RED CELL DISTRIBUTION WIDTH 16.7 % (11.0-15.5); WHITE BLOOD COUNT (AUTO) 6.8 K/uL (4.8-10.8)
[2017-12-20 01:36] LABS: CREATININE 0.9 mg/dL (0.5-1.5); POTASSIUM 3.8 mmol/L (3.5-5.1)
[2017-12-20 01:38] LABS: INR 0.94 (0.85-1.15); PARTIAL THROMBOPLASTIN TIME 26.1 SEC (26.3-35.5); PROTHROMBIN TIME 9.9 SEC (9.6-11.6)
[2017-12-20 01:40] LABS: B-TYPE NATRIURETIC PEPTIDE 21 pg/mL (0-100)
[2017-12-20 01:50] LABS: ALBUMIN 3.3 g/dL (3.5-5.0); BILIRUBIN,TOTAL 0.2 mg/dL (0.2-1.0); CREATINE KINASE MB 1.1 ng/mL (0.5-3.6); TOTAL PROTEIN, SERUM 6.7 g/dL (6.0-8.3)
== END 2017-12-20 02:37 | disposition home or self-care (01) ==
LOC: EDH 00:47
DX: R60.9 Edema, unspecified (principal); C50.919 Malignant neoplasm of unspecified site of unspecified female breast
CPT/HCPCS: 36415; 71045; 74176; 80053; 82550; 82553; 83880; 84484; 85025; 85610; 85730; 93005; 93970

== ENCOUNTER 2018-01-02 17:37 | Emergency (ER) | payer MEDICAID ==
[2018-01-02 18:03] LABS: BASOPHILS % (AUTO) 1.6 % (0.0-5.0); EOSINOPHILS % (AUTO) 0.2 % (0.0-8.0); HEMATOCRIT 36.9 % (36-48); LYMPHOCYTES % (AUTO) 17.6 % (21.0-51.0); MEAN CORPUSCULAR HEMOGLOBIN 27.7 pg (27.0-33.0); MEAN CORPUSCULAR HGB CONC 33.1 g/dL (32.0-36.0); MEAN CORPUSCULAR VOLUME 83.7 fL (79-99); MONOCYTES % (AUTO) 3.8 % (3.0-13.0); NEUTROPHILS % (AUTO) 76.8 % (40.0-77.0); PLATELET COUNT (AUTO) 179 K/uL (130-400); RED CELL DISTRIBUTION WIDTH 16.4 % (11.0-15.5); WHITE BLOOD COUNT (AUTO) 9.5 K/uL (4.8-10.8)
[2018-01-02 18:11] LABS: CREATININE 0.8 mg/dL (0.5-1.5)
[2018-01-02 18:17] LABS: ALBUMIN 3.6 g/dL (3.5-5.0); BILIRUBIN,TOTAL 0.5 mg/dL (0.2-1.0); TOTAL PROTEIN, SERUM 7.8 g/dL (6.0-8.3)
[2018-01-02] MEDS ORDERED: SODIUM CHLORIDE 0.9% 1000ML 1,000 ML IV ONE (18:20)
[2018-01-02] MEDS ORDERED: KETOROLAC TROMETHAMINE 30MG/ML ONE (18:21)
[2018-01-02] MEDS ORDERED: PROMETHAZINE HCL 25 MG/ML 1ML AMPULE IM ONE (18:21)
[2018-01-02] MEDS ORDERED: ONDANSETRON HCL 4 MG/2 ML VIAL ONE (19:10)
[2018-01-02] MEDS ORDERED: HYDROMORPHONE HCL 0.5 MG/0.5 ML ML ONE (19:11)
[2018-01-02] MEDS ORDERED: LORAZEPAM 2 MG/ML 1 ML VIAL ONE (20:16)
[2018-01-02] MEDS ORDERED: IOPAMIDOL-370 100 ML VIAL IV ONE (20:40)
[2018-01-02] MEDS ORDERED: IOPAMIDOL-370 75 ML VIAL IV ONE (20:41)
== END 2018-01-02 23:07 | disposition home or self-care (01) ==
LOC: EDH 17:37
DX: F41.1 Generalized anxiety disorder (principal); R10.9 Unspecified abdominal pain; M62.838 Other muscle spasm; M19.90 Unspecified osteoarthritis, unspecified site; M79.7 Fibromyalgia; Z90.710 Acquired absence of both cervix and uterus; Z98.890 Other specified postprocedural states
CPT/HCPCS: 36415; 71275; 74021; 74177; 80053; 85025; 96361; 96374; 96375; 99285; J1170; J1885; J2060; J2405; J2550; J7030; Q9967 ×2

== ENCOUNTER 2018-01-15 17:40 | Emergency (ER) | payer MEDICAID ==
[2018-01-15] MEDS ORDERED: SODIUM CHLORIDE 0.9% 1000ML 1,000 ML IV ONE (18:18)
[2018-01-15] MEDS ORDERED: ONDANSETRON HCL 4 MG/2 ML VIAL ONE (18:18)
[2018-01-15] MEDS ORDERED: MORPHINE SULFATE 4 MG/1ML SYG ONE (18:18)
[2018-01-15 18:24] LABS: BASOPHILS % (AUTO) 0.6 % (0.0-5.0); EOSINOPHILS % (AUTO) 1.6 % (0.0-8.0); HEMATOCRIT 32.7 % (36-48); LYMPHOCYTES % (AUTO) 33.1 % (21.0-51.0); MEAN CORPUSCULAR HGB CONC 33.4 g/dL (32.0-36.0); MEAN CORPUSCULAR VOLUME 84.1 fL (79-99); MONOCYTES % (AUTO) 11.1 % (3.0-13.0); NEUTROPHILS % (AUTO) 53.6 % (40.0-77.0); PLATELET COUNT (AUTO) 187 K/uL (130-400); RED BLOOD CELL COUNT(AUTO) 3.89 MIL/uL (4.00-5.50); RED CELL DISTRIBUTION WIDTH 16.4 % (11.0-15.5); WHITE BLOOD COUNT (AUTO) 7.8 K/uL (4.8-10.8)
[2018-01-15 18:32] LABS: CREATININE 0.9 mg/dL (0.5-1.5); POTASSIUM 3.2 mmol/L (3.5-5.1)
[2018-01-15 18:37] LABS: ALBUMIN 3.1 g/dL (3.5-5.0); BILIRUBIN,TOTAL 0.1 mg/dL (0.2-1.0); TOTAL PROTEIN, SERUM 6.7 g/dL (6.0-8.3)
[2018-01-15] MEDS ORDERED: IOHEXOL-350 75 ML VIAL IV ONE (18:53)
[2018-01-15] MEDS ORDERED: POTASSIUM BICARB/CIT AC 25 MEQ TABLET.EFF ONE (19:14)
== END 2018-01-15 20:35 | disposition home or self-care (01) ==
LOC: EDH 17:40
DX: K52.89 Other specified noninfective gastroenteritis and colitis (principal); C50.919 Malignant neoplasm of unspecified site of unspecified female breast; M79.7 Fibromyalgia; M19.90 Unspecified osteoarthritis, unspecified site; Z90.710 Acquired absence of both cervix and uterus
CPT/HCPCS: 36415; 74177; 80053; 82550; 83690; 84484; 85025; 93005; 96361; 96374; 96375; 99285; J2270; J2405; J7030; Q9967

== ENCOUNTER 2018-04-01 10:42 | Inpatient (IN) | payer MEDICAID ==
[~2018-04-01] VITALS: Ht 154.9 cm; Wt 116.2 kg
[2018-04-01] MEDS ORDERED: ONDANSETRON HCL 4 MG/2 ML VIAL ONE ×2 (11:35→15:41)
[2018-04-01] MEDS ORDERED: MORPHINE SULFATE 4 MG/1ML SYG ONE (11:36)
[2018-04-01 11:38] LABS: BASOPHILS % (AUTO) 0.6 % (0.0-5.0); EOSINOPHILS % (AUTO) 1.9 % (0.0-8.0); HEMATOCRIT 29.8 % (36-48); LYMPHOCYTES % (AUTO) 21.9 % (21.0-51.0); MEAN CORPUSCULAR HEMOGLOBIN 27.7 pg (27.0-33.0); MEAN CORPUSCULAR HGB CONC 33.4 g/dL (32.0-36.0); MONOCYTES % (AUTO) 7.3 % (3.0-13.0); NEUTROPHILS % (AUTO) 68.3 % (40.0-77.0); PLATELET COUNT (AUTO) 114 K/uL (130-400); RED BLOOD CELL COUNT(AUTO) 3.59 MIL/uL (4.00-5.50); RED CELL DISTRIBUTION WIDTH 16.5 % (11.0-15.5); WHITE BLOOD COUNT (AUTO) 8.3 K/uL (4.8-10.8)
[2018-04-01 11:46] LABS: CREATININE 1.7 mg/dL (0.5-1.5); POTASSIUM 3.7 mmol/L (3.5-5.1)
[2018-04-01 11:50] LABS: ALBUMIN 3.2 g/dL (3.5-5.0); BILIRUBIN,TOTAL 0.3 mg/dL (0.2-1.0); TOTAL PROTEIN, SERUM 6.5 g/dL (6.0-8.3)
[2018-04-01 12:22] LABS: B-TYPE NATRIURETIC PEPTIDE 7 pg/mL (0-100)
[2018-04-01] MEDS ORDERED: FENTANYL 75 MCG/HR PATCH TD ONE (13:31)
[2018-04-01] MEDS ORDERED: HYDROMORPHONE 1 MG/1 ML AMP ONE (15:41)
[2018-04-01 17:11] VITALS: BP 127/72
[2018-04-01] MEDS ORDERED: ACETAMINOPHEN 325 MG TAB PO PRN (17:15)
[2018-04-01] MEDS ORDERED: LABETALOL 20 MG/4 ML DISP.SYRIN IV PRN (17:30)
[2018-04-01] MEDS ORDERED: ONDANSETRON HCL 4 MG/2 ML VIAL IVP PRN (17:30)
[2018-04-01 17:42] LABS: APPEARANCE,URINE Clear (CLEAR); BILIRUBIN,URINE Small (NEGATIVE); COLOR,URINE Dark Yellow (YELLOW); GLUCOSE, URINE (UA) Negative (NEGATIVE); KETONES,URINE Negative (NEGATIVE); LEUKOCYTE ESTERASE ,URINE Trace (NEGATIVE); NITRATE,URINE Negative (NEGATIVE); OCCULT BLOOD,URINE Negative (NEGATIVE); PROTEIN,URINE Trace (NEGATIVE)
[2018-04-01 17:49] LABS: BACTERIA,URINE Rare /HPF (None Seen); RBC,URINE 0-1 /HPF (0-1)
[2018-04-01 17:50] LABS: SQUAMOUS EPITHELIAL CELL,UR Rare /HPF (0-2); URIC ACID CRYSTALS,URINE Few /LPF (None Seen)
[2018-04-01 17:51] LABS: MUCUS,URINE Few LPF (None Seen)
[2018-04-01] MEDS ORDERED: LABETALOL HCL 5 MG/ML 20ML VIAL IV PRN (19:15)
[2018-04-01 20:15] VITALS: BP 117/77
[2018-04-01] MEDS: HYDROMORPHONE HCL 0.5 MG/0.5 ML ML IVP PRN (20:35)
[2018-04-02 00:14] VITALS: BP 139/88
[2018-04-02] MEDS: HYDROMORPHONE HCL 0.5 MG/0.5 ML ML IVP PRN ×5 (00:23→18:17)
[2018-04-02] MEDS ORDERED: FENT-77 TD (01:20)
[2018-04-02] MEDS ORDERED: PREG200C PO (01:20)
[2018-04-02] MEDS ORDERED: HYDR-4068 PO (01:20)
[2018-04-02] MEDS ORDERED: EXEM25TA PO (01:20)
[2018-04-02 04:32] VITALS: BP 108/75
[2018-04-02 05:06] LABS: HEMATOCRIT 30.2 % (36-48); MEAN CORPUSCULAR HEMOGLOBIN 27.4 pg (27.0-33.0); MEAN CORPUSCULAR HGB CONC 32.9 g/dL (32.0-36.0); MEAN CORPUSCULAR VOLUME 83.3 fL (79-99); NUCLEATED RED BLOOD CELLS 0.1 % (0.0-0.19); PLATELET COUNT (AUTO) 112 K/uL (130-400); RED BLOOD CELL COUNT(AUTO) 3.63 MIL/uL (4.00-5.50); RED CELL DISTRIBUTION WIDTH 16.4 % (11.0-15.5); WHITE BLOOD COUNT (AUTO) 6.1 K/uL (4.8-10.8)
[2018-04-02 05:14] LABS: POTASSIUM 3.6 mmol/L (3.5-5.1)
[2018-04-02] MEDS: PANTOPRAZOLE SODIUM 40 MG TABLET.DR PO SCH (07:39)
[2018-04-02] MEDS: HYDROCODONE/ACETAMINOPHEN 5/325 MG TAB PO PRN (07:39)
[2018-04-02 07:50] VITALS: BP 125/76
[2018-04-02 11:13] VITALS: BP 123/78
[2018-04-02] MEDS ORDERED: HYDROCODONE/ACETAMINOPHEN 10/325 MG TAB PO SCH (14:30)
[2018-04-02] MEDS ORDERED: FENTANYL 50 MCG/HR PATCH TD SCH (14:30)
[2018-04-02] MEDS: ENOXAPARIN SODIUM 40 MG/0.4 ML SYRINGE SQ SCH (16:37)
[2018-04-02] MEDS: KETOROLAC TROMETHAMINE 30MG/ML IV PRN (16:37)
[2018-04-02] MEDS: FENTANYL 100 MCG/HR PATCH TD SCH (16:38)
[2018-04-02 17:00] VITALS: BP 115/67
[2018-04-02] MEDS ORDERED: 1/2 NORMAL SALINE 1,000 ML IV SCH (17:45)
[2018-04-02 20:08] VITALS: BP 129/61
[2018-04-02] MEDS: PREGABALIN 100 MG CAPSULE PO SCH (20:20)
[2018-04-02] MEDS: TRAZODONE HCL 50 MG TAB PO SCH (20:20)
[2018-04-03 00:12] VITALS: BP 113/72
[2018-04-03] MEDS: HYDROMORPHONE HCL 0.5 MG/0.5 ML ML IVP PRN ×3 (03:56→15:27)
[2018-04-03 04:16] VITALS: BP 124/61
[2018-04-03] MEDS: KETOROLAC TROMETHAMINE 30MG/ML IV PRN (06:39)
[2018-04-03] MEDS: PANTOPRAZOLE SODIUM 40 MG TABLET.DR PO SCH (06:40)
[2018-04-03 07:47] VITALS: BP 125/70
[2018-04-03] MEDS: PREGABALIN 100 MG CAPSULE PO SCH ×3 (08:08→20:00)
[2018-04-03] MEDS: ENOXAPARIN SODIUM 40 MG/0.4 ML SYRINGE SQ SCH (08:09)
[2018-04-03] MEDS: EXEMESTANE 25 MG PO SCH (08:09)
[2018-04-03] MEDS ORDERED: GADODIAMIDE 10 MMOL/20 ML ML IV ONE (10:09)
[2018-04-03] MEDS: HYDROCODONE/ACETAMINOPHEN 5/325 MG TAB PO PRN (12:03)
[2018-04-03 12:08] VITALS: BP 111/65
[2018-04-03] MEDS ORDERED: MAGNESIUM CITRATE 296 ML SOLUTION PO SCH (13:45)
[2018-04-03] MEDS: DIPHENHYDRAMINE HCL 25 MG CAPSULE PO PRN (15:27)
[2018-04-03 16:26] VITALS: BP 124/68
[2018-04-03] MEDS ORDERED: HYDROCORTISONE 0.5% 30 GM OINT TP PRN (16:45)
[2018-04-03] MEDS ORDERED: HYDROMORPHONE 1 MG/1 ML AMP ONE (19:56)
[2018-04-03] MEDS: AMITRIPTYLINE HCL 25 MG TABLET PO SCH (20:00)
[2018-04-03] MEDS: TRAZODONE HCL 50 MG TAB PO SCH (20:00)
[2018-04-03] MEDS: HYDROCORTISONE 1% 28.35 GM CREAM TP PRN (20:07)
[2018-04-03 20:12] VITALS: BP 124/64
[2018-04-04 00:12] VITALS: BP 120/56
[2018-04-04 04:12] VITALS: BP 116/67
[2018-04-04 07:48] VITALS: BP 112/55
[2018-04-04] MEDS: EXEMESTANE 25 MG PO SCH (09:00)
[2018-04-04] MEDS: KETOROLAC TROMETHAMINE 30MG/ML IV PRN (10:15)
[2018-04-04] MEDS: PREGABALIN 100 MG CAPSULE PO SCH ×3 (10:15→20:16)
[2018-04-04] MEDS: PANTOPRAZOLE SODIUM 40 MG TABLET.DR PO SCH (10:15)
[2018-04-04] MEDS: ENOXAPARIN SODIUM 40 MG/0.4 ML SYRINGE SQ SCH (10:17)
[2018-04-04 11:27] VITALS: BP 90/55
[2018-04-04] MEDS: HYDROMORPHONE PCA 10 MG/50 ML 50 ML IV PRN (11:33)
[2018-04-04] MEDS ORDERED: SODIUM CHLORIDE 0.9% 1000ML 1,000 ML IV ONE (11:36)
[2018-04-04 16:16] VITALS: BP 123/72
[2018-04-04] MEDS: MELOXICAM 7.5 MG TABLET PO SCH (17:24)
[2018-04-04 20:12] VITALS: BP 107/54
[2018-04-04] MEDS: AMITRIPTYLINE HCL 25 MG TABLET PO SCH (20:16)
[2018-04-04] MEDS: TRAZODONE HCL 50 MG TAB PO SCH (20:17)
[2018-04-05 00:16] VITALS: BP 117/46
[2018-04-05 04:16] VITALS: BP 110/68
[2018-04-05 05:57] LABS: HEMATOCRIT 29.7 % (36-48); MEAN CORPUSCULAR HEMOGLOBIN 27.9 pg (27.0-33.0); MEAN CORPUSCULAR HGB CONC 33.3 g/dL (32.0-36.0); MEAN CORPUSCULAR VOLUME 83.8 fL (79-99); PLATELET COUNT (AUTO) 144 K/uL (130-400); RED BLOOD CELL COUNT(AUTO) 3.55 MIL/uL (4.00-5.50); RED CELL DISTRIBUTION WIDTH 15.9 % (11.0-15.5); WHITE BLOOD COUNT (AUTO) 4.9 K/uL (4.8-10.8)
[2018-04-05 06:14] LABS: CREATININE 0.8 mg/dL (0.5-1.5); PHOSPHORUS 3.4 mg/dL (2.5-4.9); POTASSIUM 3.7 mmol/L (3.5-5.1)
[2018-04-05 08:06] VITALS: BP 114/70
[2018-04-05] MEDS: PREGABALIN 100 MG CAPSULE PO SCH ×3 (09:00→21:21)
[2018-04-05] MEDS: EXEMESTANE 25 MG PO SCH (09:00)
[2018-04-05] MEDS: MELOXICAM 7.5 MG TABLET PO SCH (10:18)
[2018-04-05] MEDS: ENOXAPARIN SODIUM 40 MG/0.4 ML SYRINGE SQ SCH (10:18)
[2018-04-05] MEDS: PANTOPRAZOLE SODIUM 40 MG TABLET.DR PO SCH (10:18)
[2018-04-05 11:56] VITALS: BP 102/80
[2018-04-05] MEDS: FENTANYL 100 MCG/HR PATCH TD SCH (17:59)
[2018-04-05 20:06] VITALS: BP 122/78
[2018-04-05] MEDS: AMITRIPTYLINE HCL 25 MG TABLET PO SCH (21:20)
[2018-04-05] MEDS: TRAZODONE HCL 50 MG TAB PO SCH (21:20)
[2018-04-05] MEDS: DOCUSATE SODIUM 100 MG CAP PO SCH (21:21)
[2018-04-06] VITALS (7 sets, daily range): BP systolic 109–142; BP diastolic 57–89
[2018-04-06] MEDS: HYDROMORPHONE PCA 10 MG/50 ML 50 ML IV PRN (06:08)
[2018-04-06] MEDS: EXEMESTANE 25 MG PO SCH (09:00)
[2018-04-06] MEDS: DOCUSATE SODIUM 100 MG CAP PO SCH ×3 (09:28→20:04)
[2018-04-06] MEDS: MELOXICAM 7.5 MG TABLET PO SCH (09:28)
[2018-04-06] MEDS: ENOXAPARIN SODIUM 40 MG/0.4 ML SYRINGE SQ SCH (09:29)
[2018-04-06] MEDS: PREGABALIN 100 MG CAPSULE PO SCH ×3 (09:29→20:04)
[2018-04-06] MEDS: PANTOPRAZOLE SODIUM 40 MG TABLET.DR PO SCH (09:29)
[2018-04-06] MEDS ORDERED: HYDROMORPHONE HCL 0.5 MG/0.5 ML ML IVP PRN (10:45)
[2018-04-06] MEDS: HYDROCODONE/ACETAMINOPHEN 10/325 MG TAB PO PRN ×2 (14:12→18:31)
[2018-04-06] MEDS: FUROSEMIDE 20 MG TABLET PO SCH ×2 (15:08→20:04)
[2018-04-06] MEDS: DIAZEPAM 5 MG TABLET PO SCH ×2 (15:09→20:04)
[2018-04-06] MEDS: TRAZODONE HCL 50 MG TAB PO SCH (20:04)
[2018-04-06] MEDS: AMITRIPTYLINE HCL 25 MG TABLET PO SCH (20:04)
[2018-04-06] MEDS: DIPHENHYDRAMINE HCL 25 MG CAPSULE PO PRN (21:37)
[2018-04-06] MEDS: HYDROCORTISONE 1% 28.35 GM CREAM TP PRN (21:37)
[2018-04-07 04:49] VITALS: BP 127/83
[2018-04-07 05:09] LABS: MEAN CORPUSCULAR HEMOGLOBIN 27.9 pg (27.0-33.0); MEAN CORPUSCULAR HGB CONC 33.4 g/dL (32.0-36.0); MEAN CORPUSCULAR VOLUME 83.3 fL (79-99); PLATELET COUNT (AUTO) 140 K/uL (130-400); RED CELL DISTRIBUTION WIDTH 16.1 % (11.0-15.5)
[2018-04-07 05:21] LABS: ALBUMIN 2.7 g/dL (3.5-5.0); BILIRUBIN,TOTAL 0.2 mg/dL (0.2-1.0); CREATININE 0.8 mg/dL (0.5-1.5); POTASSIUM 3.4 mmol/L (3.5-5.1); TOTAL PROTEIN, SERUM 6.3 g/dL (6.0-8.3)
[2018-04-07 05:22] LABS: B-TYPE NATRIURETIC PEPTIDE 34 pg/mL (0-100)
[2018-04-07] MEDS: PANTOPRAZOLE SODIUM 40 MG TABLET.DR PO SCH (05:43)
[2018-04-07 06:12] LABS: ERYTHROCYTE SEDIMENTATION RATE 15 MM/HR (0-20)
[2018-04-07] MEDS: HYDROCODONE/ACETAMINOPHEN 10/325 MG TAB PO PRN ×2 (07:15→11:34)
[2018-04-07 08:16] VITALS: BP 155/97
[2018-04-07] MEDS: DOCUSATE SODIUM 100 MG CAP PO SCH ×2 (08:40→13:36)
[2018-04-07] MEDS: FUROSEMIDE 20 MG TABLET PO SCH (08:40)
[2018-04-07] MEDS: MELOXICAM 7.5 MG TABLET PO SCH (08:41)
[2018-04-07] MEDS: DIAZEPAM 5 MG TABLET PO SCH (08:41)
[2018-04-07] MEDS: ENOXAPARIN SODIUM 40 MG/0.4 ML SYRINGE SQ SCH (08:42)
[2018-04-07] MEDS: PREGABALIN 100 MG CAPSULE PO SCH ×2 (08:45→13:36)
[2018-04-07] MEDS: EXEMESTANE 25 MG PO SCH (08:45)
[2018-04-07 11:56] VITALS: BP 134/90
== END 2018-04-07 15:30 | disposition home or self-care (01) | DRG 861 ==
LOC: EEVIPCON 10:42 → EDH 10:42 → EDHIP 10:43 → OBSVTOIN 10:43 → 4BH 16:20
PROVIDERS: ADMIT Internal Medicine Critical Care Medicine; ATTEND Internal Medicine Critical Care Medicine
DX: G89.3 Neoplasm related pain (acute) (chronic) (principal); N17.9 Acute kidney failure, unspecified; E66.01 Morbid (severe) obesity due to excess calories; C50.919 Malignant neoplasm of unspecified site of unspecified female breast; G62.9 Polyneuropathy, unspecified; G89.4 Chronic pain syndrome; K59.00 Constipation, unspecified; M19.90 Unspecified osteoarthritis, unspecified site; M79.7 Fibromyalgia; Z68.42 Body mass index [BMI] 45.0-49.9, adult; Z90.710 Acquired absence of both cervix and uterus; Z51.11 Encounter for antineoplastic chemotherapy
CPT/HCPCS: 36415; 71045; 71046; 72100; 72148; 72156; 72157; 72158; 80048; 80053; 81001; 83735; 83880; 84100; 85025; 85027; 85651; 93970; 94660; A9579; J1170; J1650; J1885; J2270; J2405; J7030; Q0163

== ENCOUNTER 2023-02-28 13:21 | Emergency (ER) | payer OTHER, MEDICARE ==
[~2023-02-28] VITALS: Ht 152.4 cm; Wt 103.0 kg
[~2023-02-28 13:21] MED LIST changes: -CEFU500T67 PO; -CITA20TA17 PO; -DIPH1TAB24 PO; +EXEM25TA PO; +HYDR-4068 PO; -HYOS-7 PO; -LACT1CAP78 PO; -ONDA4TAB4 PO; -OSEL75 PO; -PREG100C PO; -PROCHLORPER PO
[2023-02-28 13:49] LABS: BASOPHILS # (AUTO) 0.04 K/uL (0.00-0.20); BASOPHILS % (AUTO) 1.1 % (0.0-5.0); EOSINOPHILS # (AUTO) 0.02 K/uL (0.00-0.70); EOSINOPHILS % (AUTO) 0.5 % (0.0-8.0); HEMATOCRIT 35.3 % (36-48); IMMATURE GRANULOCYTE ABSOLUTE 0.17 K/uL (0-1); LYMPHOCYTES # (AUTO) 1.3 K/uL (1.0-4.8); LYMPHOCYTES % (AUTO) 35.5 % (21.0-51.0); MEAN CORPUSCULAR HEMOGLOBIN 29.9 pg (27.0-33.0); MEAN CORPUSCULAR HGB CONC 32.6 g/dL (32.0-36.0); MEAN CORPUSCULAR VOLUME 91.7 fL (79-99); MONOCYTES # (AUTO) 0.5 K/uL (0.1-1.0); MONOCYTES % (AUTO) 13.3 % (3.0-13.0); NEUTROPHILS # (AUTO) 1.7 K/uL (1.8-7.7); NEUTROPHILS % (AUTO) 45.1 % (40.0-77.0); PLATELET COUNT (AUTO) 64 K/uL (130-400); RED BLOOD CELL COUNT(AUTO) 3.85 MIL/uL (4.00-5.50); WHITE BLOOD COUNT (AUTO) 3.8 K/uL (4.8-10.8)
[2023-02-28 14:04] LABS: ALBUMIN 3.4 g/dL (3.5-5.0); BILIRUBIN,TOTAL 0.3 mg/dL (0.2-1.0); CREATININE 0.7 mg/dL (0.5-1.5); MAGNESIUM 1.9 mg/dL (1.80-2.40)
[2023-02-28 14:10] LABS: B-TYPE NATRIURETIC PEPTIDE 14 pg/mL (0-100)
[2023-02-28 14:14] LABS: PLATELET MORPHOLOGY COMMENT DECREASED
[2023-02-28] MEDS ORDERED: HYDROCODONE/ACETAMINOPHEN 5/325 MG TAB PO ONE (16:30)
[2023-02-28] MEDS ORDERED: FURO20TA4 PO (17:20)
[2023-02-28 17:33] VITALS: BP 136/74; PULSE 66; RESP 18; O2SAT 99
== END 2023-02-28 17:32 | disposition home or self-care (01) ==
LOC: EDH 13:21
DX: M79.89 Other specified soft tissue disorders (principal); C50.919 Malignant neoplasm of unspecified site of unspecified female breast; C79.51 Secondary malignant neoplasm of bone; D68.9 Coagulation defect, unspecified; Z79.899 Other long term (current) drug therapy; Z90.710 Acquired absence of both cervix and uterus; Z98.890 Other specified postprocedural states
CPT/HCPCS: 36415; 71045; 80053; 83735; 83880; 85025; 85378; 93970; 93971

== ENCOUNTER 2023-06-20 14:35 | Emergency (ER) | payer OTHER, MEDICARE ==
[~2023-06-20] VITALS: Ht 152.4 cm; Wt 98.9 kg
[~2023-06-20 14:35] MED LIST changes: +FURO20TA4 PO
[2023-06-20 16:52] LABS: HEMATOCRIT 40.6 % (36-48); MEAN CORPUSCULAR HEMOGLOBIN 30.1 pg (27.0-33.0); MEAN CORPUSCULAR HGB CONC 32.5 g/dL (32.0-36.0); MEAN CORPUSCULAR VOLUME 92.7 fL (79-99); PLATELET COUNT (AUTO) 49 K/uL (130-400); RED BLOOD CELL COUNT(AUTO) 4.38 MIL/uL (4.00-5.50); RED CELL DISTRIBUTION WIDTH 15.5 % (11.0-15.5); WHITE BLOOD COUNT (AUTO) 6.2 K/uL (4.8-10.8)
[2023-06-20 17:02] LABS: CREATININE 0.7 mg/dL (0.5-1.5); POTASSIUM 3.5 mmol/L (3.5-5.1)
[2023-06-20 17:07] LABS: ALBUMIN 3.5 g/dL (3.5-5.0); BILIRUBIN,TOTAL 0.4 mg/dL (0.2-1.0); TOTAL PROTEIN, SERUM 7.3 g/dL (6.0-8.3)
[2023-06-20 17:15] LABS: BAND NEUTROPHILS % (MANUAL) 3 % (0-2); BASOPHILS % (MANUAL) 1 % (0-2); EOSINOPHILS % (MANUAL) 1 % (1-6); LYMPHOCYTES % (MANUAL) 28 % (22-44); MAN.DIFF COMMENT-IMPRESSION MANUAL DIFFERENTIAL; MONOCYTES % (MANUAL) 6 % (2-9); SEGMENTED NEUTROPHILS % 61 % (40-70); TOTAL CELLS COUNTED 100; WBC MORPHOLOGY CONSISTENT W/DIFF
[2023-06-20 17:16] LABS: PLATELET MORPHOLOGY COMMENT MARKED DECREASE
[2023-06-20] MEDS ORDERED: ONDANSETRON 4MG INJ IVP ONE (18:30)
[2023-06-20] MEDS ORDERED: HYDROMORPHONE 2 MG VIAL (2MG/ML) IVP ONE ×2 (18:30→20:30)
[2023-06-20 22:09] VITALS: BP 132/60; PULSE 80; RESP 14; O2SAT 97
== END 2023-06-20 22:46 | disposition home or self-care (01) ==
LOC: EDH 14:35
DX: C50.911 Malignant neoplasm of unspecified site of right female breast (principal); R07.89 Other chest pain; Z79.899 Other long term (current) drug therapy; Z85.3 Personal history of malignant neoplasm of breast
CPT/HCPCS: 99285; 96374; 71045; 96375; 80053; 85025; 36415; 73030; 96376; J2405; J1170 ×2

== ENCOUNTER → 2023-11-09 | Outpatient (CLI) | payer OTHER, MEDICARE ==
[~2023-11-09] MED LIST changes: +LACT10SO9 PO; +LEVO750T68 PO
== END | disposition home or self-care (01) ==
LOC: RAH 15:34
PROVIDERS: ATTEND Internal Medicine
DX: M25.421 Effusion, right elbow (principal); R60.9 Edema, unspecified
CPT/HCPCS: 93971

== ENCOUNTER 2024-04-29 19:24 | Emergency (ER) | payer OTHER, MEDICARE ==
[~2024-04-29] VITALS: Ht 152.4 cm; Wt 80.3 kg
[2024-04-29 20:23] LABS: BASOPHILS # (AUTO) 0.02 K/uL (0.00-0.20); BASOPHILS % (AUTO) 0.4 % (0.0-5.0); HEMATOCRIT 34.1 % (36-48); LYMPHOCYTES # (AUTO) 0.4 K/uL (1.0-4.8); LYMPHOCYTES % (AUTO) 8.5 % (21.0-51.0); MEAN CORPUSCULAR HEMOGLOBIN 30.1 pg (27.0-33.0); MEAN CORPUSCULAR HGB CONC 32.8 g/dL (32.0-36.0); MEAN CORPUSCULAR VOLUME 91.7 fL (79-99); MONOCYTES # (AUTO) 0.2 K/uL (0.1-1.0); MONOCYTES % (AUTO) 3.1 % (3.0-13.0); NEUTROPHILS # (AUTO) 4.2 K/uL (1.8-7.7); NEUTROPHILS % (AUTO) 82.2 % (40.0-77.0); PLATELET COUNT (AUTO) 34 K/uL (130-400); RED BLOOD CELL COUNT(AUTO) 3.72 MIL/uL (4.00-5.50); WHITE BLOOD COUNT (AUTO) 5.2 K/uL (4.8-10.8)
[2024-04-29 20:29] LABS: CREATININE 0.6 mg/dL (0.5-1.0); POTASSIUM 4.5 mmol/L (3.5-5.1)
[2024-04-29 20:33] LABS: INR 1.05 (0.85-1.15); PROTHROMBIN TIME 11.3 SEC (9.6-11.6)
[2024-04-29 21:00] VITALS: TEMP 98.1
[2024-04-29 21:04] LABS: PLATELET MORPHOLOGY COMMENT DECREASED; WBC MORPHOLOGY CONSISTENT W/DIFF
[2024-04-30] MEDS: hydroMORPHone 0.5 MG SYG (0.5MG/0.5ML) IM ONE (02:21)
[2024-04-30 02:58] VITALS: BP 97/55; PULSE 93; RESP 18; O2SAT 94
== END 2024-04-30 03:26 | disposition short-term general hospital (02) ==
LOC: EDH 19:24
DX: S32.301A Unspecified fracture of right ilium, initial encounter for closed fracture (principal); F41.9 Anxiety disorder, unspecified; F32.A Depression, unspecified; Z79.899 Other long term (current) drug therapy; Z98.890 Other specified postprocedural states; Z85.3 Personal history of malignant neoplasm of breast; Z90.49 Acquired absence of other specified parts of digestive tract; Z90.710 Acquired absence of both cervix and uterus; W18.39XA Other fall on same level, initial encounter; Y93.89 Activity, other specified; Y92.89 Other specified places as the place of occurrence of the external cause; Y99.8 Other external cause status
CPT/HCPCS: 99285; 80048; 85025; 85610; 36415; 72170; 96372; J1171